=== PATIENT | male | born 1990 | race Caucasian/White ===

== ENCOUNTER 2019-10-28 18:43 | Observation (INO) | payer BC, OTHER ==
[2019-10-28 21:37] LABS: INR 1.02 (0.82-1.09)
[2019-10-28 21:44] LABS: ABS Eosinophils 0.1 10^3/ul (0-0.6); ABS Lymphocytes 0.8 10^3/ul (1.0-4.8); ABS Monocytes 0.7 10^3/ul (0-0.8); ABS Neutrophils 8.5 10^3/ul (1.5-7.7); Eosinophil % 0.6 %; Lymphocyte % 8.4 %
[2019-10-28 21:58] LABS: Albumin 4.7 g/dL (3.2-5.2); Albumin/Globulin Ratio 1.5 (1-3); BUN/Creatinine Ratio 29.4 (8-20); Calcium 10.1 mg/dL (8.6-10.3); EGFR African American 103.1 (>60); EGFR Non-African American 85.2 (>60); Globulin 3.2 g/dL (2-4); Total Bilirubin 0.9 mg/dL (0.2-1.0); Total Protein 7.9 g/dL (6.4-8.9)
[2019-10-28] MEDS ORDERED: NS 0.9% 1000 ML** 1,000 ML IV ONE ×2 (22:19→23:16)
--- NOTE | 2019-10-28 22:27 | ED ---
Abdominal Pain/Male - HPI Summary HPI Summary: Patient complains of right lower quadrant pain 3 days, pain with urinating 2 days and multiple episodes of diarrhea 2 days. Abdominal pain described as constant baseline with intent spikes of pain, worse with movement, new onset. Denies fever, cough, sore throat, CP, SOB, N/V, penile or testicular symptoms. Patient has history of cerebral palsy with left hemiparesis. Abdominal surgical history is none. - History of Current Complaint Chief Complaint: EDFlankPain Stated Complaint: ABD PAIN PER PT Time Seen by Provider: 10/28/19 22:13 Hx Obtained From: Patient Onset/Duration: Gradual Onset, Lasting Days Timing: Constant Severity Initially: Moderate Severity Currently: Severe Pain Intensity: 8 Pain Scale Used: 0-10 Numeric Location: Discrete At: RLQ Radiates: No Character: Sharp, Dull Aggravating Factor(s): Movement Alleviating Factor(s): Nothing Associated Signs And Symptoms: Positive: Decreased Appetite, Diarrhea - Allergies/Home Medications Allergies/Adverse Reactions: Allergies Allergy/AdvReac Type Severity Reaction Status Date / Time No Known Allergies Allergy Verified 10/28/19 18:49 PMH/Surg Hx/FS Hx/Imm Hx Endocrine/Hematology History: Denies: Hx Anticoagulant Therapy Cardiovascular History: Denies: Hx Pacemaker/ICD History: Denies: Hx Dialysis Sensory History: Denies: Hx Eye Prosthesis Opthamlomology History: Denies: Hx Legally Blind EENT History: Denies: Hx Deafness Neurological History: Denies: Hx Dementia Infectious Disease History: No Infectious Disease History: Denies: Traveled Outside the [place] in Last 30 Days - Family History Known Family History: Positive: Non-Contributory - Social History Alcohol Use: None Substance Use Type: Reports: None Smoking Status (MU): Heavy Every Day Tobacco Smoker Review of Systems Constitutional: Negative Eyes: Negative ENT: Negative Cardiovascular: Negative Respiratory: Negative Positive: Abdominal Pain, Diarrhea Genitourinary: Negative Musculoskeletal: Negative Skin: Negative Neurological: Negative Psychological: Normal All Other Systems Reviewed And Are Negative: Yes Physical Exam Triage Information Reviewed: Yes Vital Signs On Initial Exam: Initial Vitals Temp Pulse Resp BP Pulse Ox 100.4 F 104 18 126/78 98 10/28/19 18:45 10/28/19 18:45 10/28/19 18:45 10/28/19 18:45 10/28/19 18:45 Vital Signs Reviewed: Yes Appearance: Positive: Well-Appearing Skin: Positive: Warm Head/Face: Positive: Normal Head/Face Inspection Eyes: Positive: Normal Neck: Positive: Supple Respiratory/Lung Sounds: Positive: Clear to Auscultation Cardiovascular: Positive: Normal Abdomen Description: Positive: Other: - Right lower quadrant pain with palpation. Abdominal exam otherwise unremarkable. Musculoskeletal: Positive: Normal Neurological: Positive: Normal Psychiatric: Positive: Normal AVPU Assessment: Alert - Garden Coma Scale Best Eye Response: 4 - Spontaneous Best Motor Response: 6 - Obeys Commands Best Verbal Response: 5 - Oriented Coma Scale Total: 15 Procedures - Sedation Patient Received Moderate/Deep Sedation with Procedure: No Diagnostics - Vital Signs Vital Signs Temp Pulse Resp BP Pulse Ox 10/28/19 18:45 100.4 F 104 18 126/78 98 - Laboratory Lab Results: Lab Results 10/28/19 10/28/19 Range/Units 21:16 21:16 INR (Anticoag Therapy) 1.02 (0.82-1.09) Sodium 132 L (135-145) mmol/L Potassium 4.0 (3.5-5.0) mmol/L Chloride 95 L (101-111) mmol/L Carbon Dioxide 27 (22-32) mmol/L Anion Gap 10 (2-11) mmol/L BUN 30 H (6-24) mg/dL Creatinine 1.02 (0.67-1.17) mg/dL Est GFR ( Amer) 103.1 (>60) Est GFR (Non-Af Amer) 85.2 (>60) BUN/Creatinine Ratio 29.4 H (8-20) Glucose 114 H (70-100) mg/dL Calcium 10.1 (8.6-10.3) mg/dL Total Bilirubin 0.90 (0.2-1.0) mg/dL AST 12 L (13-39) U/L ALT 11 (7-52) U/L Alkaline Phosphatase 60 (34-104) U/L Total Protein 7.9 (6.4-8.9) g/dL Albumin 4.7 (3.2-5.2) g/dL Globulin 3.2 (2-4) g/dL Albumin/Globulin Ratio 1.5 (1-3) Result Diagrams: 10/28/19 21:16 10/28/19 21:16 Lab Statement: Any lab studies that have been ordered have been reviewed, and results considered in the medical decision making process. Abdominal Pain Male Course/Dx - Course Course Of Treatment: Patient complains of right lower quadrant pain 3 days, pain with urinating 2 days and multiple episodes of diarrhea 2 days. Abdominal pain described as constant baseline with intent spikes of pain, worse with movement, new onset. Denies fever, cough, sore throat, CP, SOB, N/V, penile or testicular symptoms. Patient has history of cerebral palsy with left hemiparesis. Abdominal surgical history is none. Vital signs within normal limits. Labs unremarkable. CT abdomen and pelvis positive for 3 mm appendicolith and the appendix is mildly dilated measuring up to 8 mm diameter with possible wall thickening and enhancement and partly fluid-filled with subtle adjacent fat stranding, suspicious for acute appendicitis without signs of perforation. There is mild wall thickening of loops of ileum in the right lower quadrant cannot exclude mild enteritis. Discussed patient with surgery Dr Rucker will admit. - Diagnoses Provider Diagnoses: Appendicitis, Diarrhea Discharge ED - Sign-Out/Discharge Documenting (check all that apply): Patient Departure - Discharge Plan Condition: Stable Disposition: ADMITTED TO [facility] - Billing Disposition and Condition Condition: STABLE Disposition: Admitted to [facility]
[2019-10-28 22:33] LABS: Hematocrit 47 % (42-52); Hemoglobin 16.9 g/dL (14.0-18.0); Mean Corpuscular HGB Conc 36 g/dL (31-36); Mean Corpuscular Hemoglobin 32 pg (27-31); Mean Corpuscular Volume 90 fL (80-94); Mean Platelet Volume 9.7 fL (7.4-10.4); Platelet Count 194 10^3/uL (150-450); Red Blood Count 5.23 10^6 /uL (4.18-5.48); Red Cell Distribution Width 12 % (10-15); White Blood Count 10.1 10^3/uL (3.5-10.8)
[2019-10-28] MEDS ORDERED: Iohexol 300* (CONTRAST) 10 ML SDV IV ONE (22:37)
[2019-10-28 23:32] LABS: Urine Appearance Clear; Urine Bilirubin Negative (Negative); Urine Blood 1+ (Negative); Urine Color Yellow; Urine Glucose Negative (Negative); Urine Ketones 1+ (Negative); Urine Nitrite Negative (Negative); Urine Protein Negative (Negative); Urine Urobilinogen Negative (Negative)
[2019-10-28 23:36] LABS: Urine Bacteria Absent (Absent); Urine Red Blood Cell Trace(0-2/hpf) (Absent); Urine Squamous Epithelial Cell Present (Absent); Urine White Blood Cell Trace(0-5/hpf) (Absent)
[2019-10-29] MEDS ORDERED: HYDROmorphone INJ* 0.5 MG/0.5 ML SYRINGE IV SLOW PU PRN (00:23)
[2019-10-29] MEDS ORDERED: Ondansetron INJ* 2 MG/ML VIAL IV PRN (00:23)
[2019-10-29] MEDS ORDERED: NS 0.9% 1000 ML** 1,000 ML IV SCH (00:30)
[2019-10-29] MEDS ORDERED: Zosyn 3.375 GM IV - ED ONCE IVPB ONE ×2 (00:30)
--- NOTE | 2019-10-29 01:35 | HP ---
CC: [facility]; Dr. Violeta Mccurdy * HISTORY AND PHYSICAL: DATE OF ADMISSION: 10/29/19 HISTORY OF PRESENT ILLNESS: Mr. Solano is a 29-year-old male with cerebral palsy who presented to the emergency room today with worsening right-sided abdominal pain. Workup in the emergency room including labs and CT scan was suggestive of acute appendicitis and Surgery was called. The patient describes onset of symptoms on Monday this was upper abdominal pain that by Monday focused on the right side, mostly in the lower abdomen, it was accompanied with diarrhea some decrease in appetite that seems to be returning now. He denied any fevers or chills. He did have pain in urinating. The patient denied any previous similar symptoms. Pain was again sharp in quality, nonradiating, but mostly on the right side with a focus on the right lower quadrant. PAST MEDICAL HISTORY: Cerebral palsy. PAST SURGICAL HISTORY: Foot surgery with a bone graft from the left hip. MEDICATIONS: None. ALLERGIES: No known drug allergies. SOCIAL HISTORY: He lives with his fiancee. He is a smoker. FAMILY HISTORY: Noncontributory. No history of coronary artery disease or ulcerative colitis. REVIEW OF SYSTEMS: No fevers or chills, but has had mildly elevated temperature here in the emergency room. No shortness of breath or chest pain. Smoker as described. No cardiac disease. No endocrine disorders. Diarrhea as described. No bleeding or clotting disorders. Disability includes deformity to the left hand, the patient has good function at the upper arm on the left. PHYSICAL EXAMINATION GENERAL: Alert and oriented x3, in no apparent distress. VITAL SIGNS: Temperature 100.4, heart rate 104, blood pressure 126/76, respirations 18 with O2 sat of 98 on room air. HEENT: Sclerae anicteric. Mucous membranes are dry. NECK: No lymphadenopathy. LUNGS: Clear. HEART: S1 and S2. No murmurs appreciated. ABDOMEN: Soft, scaphoid, tender at the right lower quadrant with no rebound. He is tender at McBurney's. He has no masses or hernias noted. No CVA tenderness. RECTAL EXAM: Not performed. GENITALIA: Testicles normally descended without lesion. No hernia in the groin area. EXTREMITIES: Lower extremities, no pitting edema or cyanosis. DIAGNOSTIC STUDIES/LAB DATA: Labs reviewed. White count of 10 with left shift. Chemistry panel shows creatinine 1.02, which is the only lab for this gentleman in our system. Urinalysis showed ketones and blood but negative nitrites. CT scan of the abdomen and pelvis reviewed, I agree with the report of an appendicolith. It was read as mild inflammation around the appendix, it is difficult to tease out, but the read is as such with concern for acute appendicitis. IMPRESSION: Likely, acute appendicitis in an otherwise healthy gentleman. RECOMMENDATIONS: Laparoscopic cholecystectomy. I have outlined the details of the procedure going over the risks, benefits, and alternatives. The patient wishes to proceed. I would like to do this later in the morning or possibly at midday due to the late hour and the fact that the patient is hemodynamically stable. We will start him on antibiotics and admit him to the short stay surgical unit. He will maintain n.p.o. status on IV fluids. [id number]/[facility] #: [id number] DAVIS
[2019-10-29] MEDS ORDERED: Piperacillin/Tazobactam VIAL*) 3.375 GM in NS 0.9% 100 ML* 100 ML IVPB SCH (05:00)
--- NOTE | 2019-10-29 10:25 | HP ---
H&P (Free Text) History and Physical: Addendum to earlier H and P report Plan: Laparoscopic appendectomy
--- NOTE | 2019-10-29 11:03 | PN ---
Progress Note - Progress Note Date of Service: 10/29/19 Note: Patient was admitted overnight for acute appendicitis. He reports right lower quadrant abdominal pain which is unchanged since admission. He has been receiving Zosyn. Afebrile. Temp Pulse Resp BP Pulse Ox 98.7 F 71 16 107/55 99 10/29/19 08:56 10/29/19 08:56 10/29/19 09:00 10/29/19 08:56 10/29/19 08:56 General: No acute distress. Abdomen: soft, nondistended, tenderness to palpation in RLQ. No rebound. Neuro: Alert, oriented x3 A&P: 29M with acute appendicitis. -OR today for laparoscopic possible open appendectomy. Discussed risks of surgery including but not limited to bleeding, infection, bowel injury. -NPO. IVF -Zosyn -Anticipate d/c to home later today.
[2019-10-29] MEDS ORDERED: Bupivacaine 0.25% EPI 200,000* 30 ML SDV ONE ×2 (11:47→12:20)
[2019-10-29] MEDS ORDERED: Ketorolac INJ* 30 MG/ML 1 ML VIAL ONE (12:25)
[2019-10-29] MEDS ORDERED: Lidocaine 2% PF * 5 ML VIAL ONE (12:25)
[2019-10-29] MEDS ORDERED: fentaNYL* 50 MCG/ML 2 ML VIAL (100 MCG VIAL) ONE (12:25)
[2019-10-29] MEDS ORDERED: Cisatracurium* 2 MG/ML MDV 5 ML ONE (12:25)
[2019-10-29] MEDS ORDERED: Dexamethasone IV* 4 MG/ML 1 ML (4 MG) ONE (12:25)
[2019-10-29] MEDS ORDERED: Ondansetron INJ* 2 MG/ML VIAL ONE (12:25)
[2019-10-29] MEDS ORDERED: Propofol* 10 MG/ML 20 ML BTL ONE (12:25)
[2019-10-29] MEDS ORDERED: KETAMINE HCL* 50 MG/ML 10 ML VIAL ONE (12:26)
[2019-10-29] MEDS ORDERED: Midazolam* 1 MG/ML 5 ML VIAL (5 MG) ONE (12:26)
[2019-10-29] MEDS ORDERED: Bupivacaine 0.25% SDV* 30 ML ONE (12:43)
[2019-10-29] MEDS ORDERED: fentaNYL* 50 MCG/ML 2 ML VIAL (100 MCG VIAL) IV PRN (13:18)
[2019-10-29] MEDS ORDERED: DiMENhydriNATE IV* 50 MG/ML VIAL IV PUSH PRN (13:18)
[2019-10-29] MEDS ORDERED: Naloxone* 0.4 MG/ML 1 ML VIAL IV PRN (13:18)
[2019-10-29] MEDS ORDERED: Neostigmine Methylsulfate* 1 MG/ML 10 ML VIAL (1 mg/ml) ONE (14:01)
[2019-10-29] MEDS ORDERED: Glycopyrrolate IV* 0.2 MG/ML 1 ML VIAL ONE (14:01)
--- NOTE | 2019-10-29 14:19 | OP ---
Operative Report - Blank - Operative Report Date of Operation: 10/29/19 Note: Operative Note Preoperative Dx: Acute Appendicitis Postoperative Dx: same Procedure: Laparoscopic appendectomy Anesthesia: GET Surgeon:Bessy CARREON Assist:Helen MEZA EBL: minimal Specimen: Appendix Fluids: crytalloid Drain:none Findings:as above
[2019-10-29 15:46] VITALS: BP 121/71
--- NOTE | 2019-10-29 23:44 | OP ---
DATE OF OPERATION: 10/29/19 - ROOM #333 DATE OF : 86 SURGEON: Negrita Doherty MD GERIATRIC ASSISTANT: SUSANA Santoyo ANESTHESIA: General. PRE-OP DIAGNOSIS: Acute appendicitis. POST-OP DIAGNOSIS: Acute appendicitis. OPERATIVE PROCEDURE: Laparoscopic appendectomy. ESTIMATED BLOOD LOSS: Minimal. INDICATION: Marco Solano is a 29-year-old male with history of cerebral palsy, who presented with 3 days of abdominal pain. Pain has been in the right lower quadrant for the past 2 days. White blood cell count was 10. CT scan findings showed mildly dilated appendix and some fat stranding around the appendix. There was an appendicolith on the CT scan. He was started on Zosyn. Surgery was discussed with the patient. We talked about risks including but not limited to bleeding, infection, or bowel injury. The patient agreed to proceed with laparoscopic appendectomy, possible open. FINDINGS: Purulent fluid around the appendix, which was inflamed but not perforated. DESCRIPTION OF PROCEDURE: The patient was brought to the OR and placed in the supine position on the OR table. SCDs were placed. A body warmer was also turned on. He received Zosyn. General anesthesia was administered. The abdomen was prepped and draped in the usual sterile fashion. A time-out confirming the patient's name, date of , and procedure was called. A curvilinear infraumbilical incision was made with a scalpel. The incision was carried down to the fascia using blunt dissection. The fascia was elevated and incised transversely. A Kathe was used to dilate the opening in the fascia and enter the peritoneum. A 12-mm trocar was placed into the abdomen. Pneumoperitoneum was achieved to 15 mmHg. The camera was inserted into the abdomen. A 5-mm trocar was placed in the left lower quadrant and another in the suprapubic area at the midline, both under direct visualization. The small bowel was mildly dilated throughout. In the right lower quadrant, there was fibrinous material along the lateral wall where small bowel appeared to be tethered.The loop of small bowel was easily dissected away bluntly. Blunt dissection was used to mobilize the ileum and colon. The appendix could be seen against the lateral abdominal wall. There was a small amount of pus that was drained after the appendix was mobilized away from the lateral abdominal wall. The appendix was elevated and the inflammatory adhesions were bluntly dissected away. A window was created in the mesoappendix at the base of the appendix. LigaSure was used to divide the mesoappendix. A 45-mm bradley [place] stapler was used to transect the appendix at the base. The appendix was removed from the abdomen and passed off the field. The staple line was examined and was intact. There was good hemostasis. The right lower quadrant was irrigated with saline. The trocars were removed under direct visualization. The 12 mm trocar was removed last. The fascia was closed with [id number] 0-Vicryl. The skin was closed with running 4-0 Monocryl. The 5 mm trocar sites were closed with 4- 0 Vicryl. 0.25% Marcaine was infiltrated into each of the incision sites. The incisions were covered with Steri-Strips. Needle and sponge counts were correct. The patient was extubated and brought to recovery in stable condition. [id number]/[facility] #: [id number] MTDD
== END 2019-10-29 16:00 | disposition home or self-care (01) ==
LOC: ED 18:43 → SSU 10-29 00:23 → INTOOBSV 10-29 00:23
PROVIDERS: ADMIT Surgery; ATTEND Surgery Surgical Critical Care
DX: K35.80 Unspecified acute appendicitis (principal); G80.9 Cerebral palsy, unspecified; R10.31 Right lower quadrant pain; R19.7 Diarrhea, unspecified; F17.210 Nicotine dependence, cigarettes, uncomplicated
CPT/HCPCS: 36415; 74177; 80053; 81003; 81015; 85025; 85610; 87086; 88304; 96361; 96365; 99284; C1776; G0378; J1100; J1885; J2250; J2405; J2543; J2704; J2710; J3010; J3490; Q9967